=== PATIENT | female | born 2005 | race Caucasian/White ===

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

== ENCOUNTER 2025-02-09 18:25 | Emergency (ER) | payer BC ==
[2025-02-09] MEDS ORDERED: Ibuprofen 200 MG TAB ONE (20:24)
== END 2025-02-09 21:26 | disposition home or self-care (01) ==
LOC: ERS 18:25
DX: J02.9 Acute pharyngitis, unspecified (principal)
CPT/HCPCS: 87081; 87428; 87430; 99283